=== PATIENT | male | born 1975 | race Caucasian/White ===

== ENCOUNTER 2021-04-14 07:42 | Emergency (ER) | payer OTHER, BC ==
[~2021-04-14] VITALS: Ht 180.3 cm; Wt 97.5 kg
--- OUTSIDE RECORDS SUMMARY | 2021-04-14 07:46 | XMS ---
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 Valentín has no Care Guidelines for this patient. Blake VISIT COUNT (12 MO.) 1 NIRANJAN Collado TOTAL 1 NOTE: Visits indicate total known visits. ED/C VISIT TRACKING (12 MO.) 04/14/2021 07:44 NIRANJAN Reid [place] TYPE: Emergency COMPLAINT: - LOWER BACK PAIN, SPASMS INPATIENT VISIT TRACKING (12 MO.) No inpatient visits to display in this time frame [email or web address]
[2021-04-14] MEDS ORDERED: METOPROLOL SUC100 MG PO (07:58)
[2021-04-14] MEDS ORDERED: HYDROCHLOROTHIA25 MG PO (07:59)
[2021-04-14] MEDS ORDERED: TEMAZEPAM15 MG PO (07:59)
[2021-04-14] MEDS ORDERED: IRBESARTAN150 MG PO (08:00)
[2021-04-14] MEDS ORDERED: PREDNISONE20 MG PO (15:41)
[2021-04-14] MEDS ORDERED: CYCLOBENZAPRINE10 MG PO (15:41)
[2021-04-14] MEDS ORDERED: HYDROCODON-ACE1 EA10 PO (15:41)
== END 2021-04-14 16:06 | disposition home or self-care (01) ==
LOC: ED 07:42
DX: S39.012A Strain of muscle, fascia and tendon of lower back, initial encounter (principal); X50.0XXA Overexertion from strenuous movement or load, initial encounter; Z88.1 Allergy status to other antibiotic agents; Z79.899 Other long term (current) drug therapy
CPT/HCPCS: 96374; 96375; 96376; 99283-25; J1100; J1170; J1885; J2060